=== PATIENT | male | born 1965 | race Caucasian/White ===

== ENCOUNTER 2018-11-10 06:01 | Day surgery (SDC) | payer OTHER ==
[~2018-11-10] VITALS: Ht 180.3 cm; Wt 98.0 kg
--- NOTE | 2018-11-10 08:02 | NUR ---
PT RETURNED TO RECOVERY ROOM IN RECLINER WITH RIGHT TR BAND AND RIGHT WRIST BOARD IN PLACE WITH NO HEMATOMA, NO PULSATILE BLEEDING AND INTACT. CALL LIGHT IN REACH.
--- NOTE | 2018-11-10 08:06 | NUR ---
DR POTTS IN ROOM TO SEE PT.
--- NOTE | 2018-11-10 10:10 | NUR ---
10 CC OF AIR REMOVED OVER 10 MIN FROM NOW DEFLATED RIGHT TR BAND. NO HEMATOMA, NO PULSATILE BLEEDING SOFT NON-TENDER. DISCHARGE INSTRUCTIONS REVIEWED AND ALL QUESTIONS ANSWERED.
--- NOTE | 2018-11-10 10:21 | NUR ---
NO CHANGES TO DEFLATED RIGHT TR BAND SITE.
--- NOTE | 2018-11-10 10:55 | NUR ---
DELFATED RIGHT TR BAND REMOVED AND POLYMEM PLACED OVER SITE. NO HEMATOMA, NO BLEEDING TO RIGHT RADIAL SITE. RIGHT RADIAL WRIST BOARD PLACED AND SLING ON RIGHT ARM. 20 G IV DISCONTINUED FROM LEFT AC WITH INTACT CANNULA. PT ESCORTED OUT VIA WHEELCHAIR ESCORT.
== END 2018-11-10 10:59 | disposition home or self-care (01) ==
LOC: MHTC 06:01
DX: I25.10 Atherosclerotic heart disease of native coronary artery without angina pectoris (principal); I10 Essential (primary) hypertension; F41.9 Anxiety disorder, unspecified; F32.9 Major depressive disorder, single episode, unspecified; F17.220 Nicotine dependence, chewing tobacco, uncomplicated; G47.33 Obstructive sleep apnea (adult) (pediatric); E66.9 Obesity, unspecified; I34.0 Nonrheumatic mitral (valve) insufficiency; E29.1 Testicular hypofunction; R00.1 Bradycardia, unspecified; R55 Syncope and collapse; Z99.89 Dependence on other enabling machines and devices
CPT/HCPCS: 93454; 99152; 99153; C1769; C1894; J1644; J2250; J3010; J7030; Q9967

== ENCOUNTER 2019-06-14 10:51 | Day surgery (SDC) | payer OTHER ==
[~2019-06-14] VITALS: Ht 182.9 cm; Wt 93.6 kg
--- NOTE | 2019-06-14 12:48 | NUR ---
06/14/19 1248 Cony Hernandez SIMETHICONE USED DURING PROCEDURE.
--- NOTE | 2019-06-14 14:51 | NUR ---
06/14/19 1451 Cony Hernandez PT TOLD RN HE WAS PLANNING ON DRIVING HOME. RN EDUCATED PATIENT ON RISKS INVOLVED, CONSEQUENCES, DRIVING UNDER THE INFLUENCE, MEDICATION MECHANISMS, ETC. AND INSTRUCTED TO NOT DRIVE FOR DR'S ORDERED 24 HRS. PT STATED HE WILL HAVE HIS RIDE "GO OUT TO LUNCH & THEN I CAN DRIVE MYSELF HOME." PT INSTRUCTED AGAIN NOT TO DRIVE FOR 24HRS DR ORDERED FOR SAFETY OF SELF & OTHERS. PT NOT RECEPTIVE.
== END 2019-06-14 14:13 | disposition home or self-care (01) ==
LOC: ORSCSDS 10:51
PROVIDERS: Internal Medicine Gastroenterology
PROC: 0DBK8ZX Excision of Ascending Colon, Via Natural or Artificial Opening Endoscopic, Diagnostic (ICD-10-PCS; principal; 2019-06-14 12:15)
PROC: 0DBN8ZX Excision of Sigmoid Colon, Via Natural or Artificial Opening Endoscopic, Diagnostic (ICD-10-PCS; principal; 2019-06-14 12:15)
PROC: 0DBL8ZX Excision of Transverse Colon, Via Natural or Artificial Opening Endoscopic, Diagnostic (ICD-10-PCS; principal; 2019-06-14 12:15)
DX: Z12.11 Encounter for screening for malignant neoplasm of colon (principal); D12.2 Benign neoplasm of ascending colon; D12.3 Benign neoplasm of transverse colon; K63.5 Polyp of colon; K57.30 Diverticulosis of large intestine without perforation or abscess without bleeding; K64.8 Other hemorrhoids; I10 Essential (primary) hypertension; G47.33 Obstructive sleep apnea (adult) (pediatric)
CPT/HCPCS: 88305; J2405; J2704; J7120

== ENCOUNTER 2019-06-21 10:53 | Day surgery (SDC) | payer OTHER ==
[~2019-06-21] VITALS: Ht 182.9 cm; Wt 92.2 kg
--- NOTE | 2019-06-21 11:19 | NUR ---
06/21/19 1119 Inna García PRP DRAWN, COAGULANT ADDED AND DELIVERED TO THE OR.
--- NOTE | 2019-06-21 14:44 | NUR ---
06/21/19 1444 JOSE FISCHER PATIENT UP TO CHAIR WITHOUT DIFFICULTY. VSS ON ROOM AIR. TOLERATING PO INTAKE WELL. DENIES PAIN/NAUSEA. NUMBNESS/TINGLING IN RUE D/T BLOCK. DISCHARGE INSTRUCTIONS REVIEWED WITH PATIENT. PATIENT VERBALIZES UNDERSTANDING. COPY GIVEN TO PATIENT TO TAKE HOME. PATIENT STATES POST-PROCEDURE RIDE HOME HAS BEEN ARRANGED WITH
== END 2019-06-21 14:36 | disposition home or self-care (01) ==
LOC: ORSCSDS 10:53
PROVIDERS: Orthopaedic Surgery
PROC: 01N50ZZ Release Median Nerve, Open Approach (ICD-10-PCS; principal; 2019-06-21 12:00)
PROC: 0LU14KZ Supplement Right Shoulder Tendon with Nonautologous Tissue Substitute, Percutaneous Endoscopic Approach (ICD-10-PCS; principal; 2019-06-21 12:00)
PROC: 0RNJ4ZZ Release Right Shoulder Joint, Percutaneous Endoscopic Approach (ICD-10-PCS; principal; 2019-06-21 12:00)
PROC: 0LQ14ZZ Repair Right Shoulder Tendon, Percutaneous Endoscopic Approach (ICD-10-PCS; principal; 2019-06-21 12:00)
DX: S46.001A Unspecified injury of muscle(s) and tendon(s) of the rotator cuff of right shoulder, initial encounter (principal); M75.21 Bicipital tendinitis, right shoulder; M75.41 Impingement syndrome of right shoulder; G56.01 Carpal tunnel syndrome, right upper limb; I10 Essential (primary) hypertension; E78.5 Hyperlipidemia, unspecified; I25.10 Atherosclerotic heart disease of native coronary artery without angina pectoris; G47.33 Obstructive sleep apnea (adult) (pediatric)
CPT/HCPCS: C1713; J0171; J0690; J1100; J1885; J2250; J2370; J2405; J2704; J2710; J3010; J7120

== ENCOUNTER 2021-11-28 17:30 | Emergency (ER) | payer OTHER ==
[~2021-11-28] VITALS: Ht 180.3 cm; Wt 94.3 kg
[2021-11-28] MEDS ORDERED: LOSARTAN-HCTZ1 EACH PO (18:06)
[2021-11-28] MEDS ORDERED: AMPDEX10 PO (18:09)
[2021-11-28 19:25] LABS: BASOPHILS ABSOLUTE AUTO 0.04 K/mm3 (0.00-0.23); BASOPHILS PERCENT AUTO 0 % (0-2); EOSINOPHILS PERCENT AUTO 1 % (0-6); Hematocrit 44.3 % (37.0-53.0); Hemoglobin 15.5 g/dL (13.5-17.5); IMMATURE GRAN ABSOLUTE AUTO 0.08 K/mm3 (0.00-0.10); IMMATURE GRAN PERCENT AUTO 1 % (0-1); LYMPHOCYTES ABSOLUTE AUTO 1.74 K/mm3 (0.84-5.20); LYMPHOCYTES PERCENT AUTO 15 % (21-46); MONOCYTES ABSOLUTE AUTO 1.18 K/mm3 (0.16-1.47); MONOCYTES PERCENT AUTO 10 % (4-13); Mean Corpuscular HGB 31.4 pg (26.0-34.0); Mean Corpuscular Volume 90 fL (80-100); Mean Platelet Volume 9.4 fL (9.1-12.4); NEUTROPHILS ABSOLUTE AUTO 8.53 K/mm3 (1.96-9.15); NEUTROPHILS PERCENT AUTO 73 % (41-73); Platelet Count 227 K/mm3 (150-400); RDW Coefficient Variation 12.8 % (11.7-14.2); RDW Standard Deviation 42.5 fL (35.1-46.3); Red Blood Cell Count 4.93 M/mm3 (4.30-5.90); White Blood Cell Count 11.67 K/mm3 (4.00-11.30)
[2021-11-28 19:33] LABS: Albumin/Globulin Ratio 1.1 (0.8-1.8); Bilirubin, Total 0.5 mg/dL (0.1-1.0); Bun/Creatinine Ratio 23.5 (12.0-20.0); Calcium, Blood 8.8 mg/dL (8.5-10.1); Creatinine, Blood 0.85 mg/dL (0.60-1.20); Globulin, Blood 3.5 g/dL (2.2-4.0); Magnesium, Blood 1.8 mg/dL (1.6-2.4); Potassium, Blood 3.1 mmol/L (3.5-5.5); Thyroid Stimulating Hormone 1.71 uIU/mL (0.360-4.800); Total Protein, Blood 7.5 g/dL (6.4-8.2)
== END 2021-11-28 21:26 | disposition home or self-care (01) ==
LOC: ER 17:30
PROVIDERS: Student in an Organized Health Care Education/Training Program
DX: R07.89 Other chest pain (principal); I10 Essential (primary) hypertension; R06.02 Shortness of breath; Z79.899 Other long term (current) drug therapy
CPT/HCPCS: 71046; 80053; 83735; 83880; 84443; 84484; 85025; 85379; 93005; 93010; 99284-25; A9270

== ENCOUNTER 2023-04-12 08:02 | Day surgery (SDC) | payer OTHER ==
[2023-04-12] VITALS (14 sets, daily range): BP systolic 108–151; BP diastolic 52–96
[~2023-04-12] VITALS: Ht 180.3 cm; Wt 98.6 kg
[~2023-04-12 08:02] MED LIST: AMPDEX10 PO; ASPI81CH PO; ESCI10 PO; LOSARTAN-HCTZ1 EACH PO; TURMERIC500 M2 PO; Voltaren100 GM TOP
[2023-04-12] MEDS ORDERED: CBD OINTMENT TOP (08:39)
[2023-04-12] MEDS ORDERED: [UNRECOGNIZED DRUG - OTHER] (08:39)
[2023-04-12] MEDS ORDERED: MARIJUANA INH (08:42)
--- NOTE | 2023-04-12 09:52 | NUR ---
PATIENT STATES HE WEARS HIS CONTACTS WHILE SLEEPING. DR CASTILLO STATES PATIENT MAY KEEP HIS CONTACT LENSES IN HIS EYES DURING SURGERY.
--- NOTE | 2023-04-12 19:19 | NUR ---
SHIFT SUMMARY POD0 L NGUYEN, AQUACEL IN PLACE C/D/I. POLAR PACK TO HIP. DENIES N/T. EATING, DRINKING, VOIDING. UP TO CHAIR AND WALKED IN TALAMANTES 1 ASSIST, GB, FWW. CALLS APPROPRIATELY. CALL LIGHT IN REACH.
[2023-04-13 02:58] VITALS: BP 153/71
[2023-04-13 05:04] LABS: BASOPHILS ABSOLUTE AUTO 0.03 K/mm3 (0.00-0.23); BASOPHILS PERCENT AUTO 0 % (0-2); EOSINOPHILS ABSOLUTE AUTO 0.14 K/mm3 (0.00-0.68); EOSINOPHILS PERCENT AUTO 1 % (0-6); Hematocrit 35.7 % (37.0-53.0); Hemoglobin 12.5 g/dL (13.5-17.5); IMMATURE GRAN ABSOLUTE AUTO 0.08 K/mm3 (0.00-0.10); IMMATURE GRAN PERCENT AUTO 1 % (0-1); LYMPHOCYTES ABSOLUTE AUTO 1.46 K/mm3 (0.84-5.20); LYMPHOCYTES PERCENT AUTO 15 % (21-46); MONOCYTES ABSOLUTE AUTO 1.15 K/mm3 (0.16-1.47); MONOCYTES PERCENT AUTO 12 % (4-13); Mean Corpuscular HGB 31.8 pg (26.0-34.0); Mean Corpuscular Volume 91 fL (80-100); Mean Platelet Volume 9.4 fL (9.1-12.4); NEUTROPHILS ABSOLUTE AUTO 7.13 K/mm3 (1.96-9.15); NEUTROPHILS PERCENT AUTO 71 % (41-73); Platelet Count 184 K/mm3 (150-400); RDW Standard Deviation 47.3 fL (35.1-46.3); Red Blood Cell Count 3.93 M/mm3 (4.30-5.90); White Blood Cell Count 9.99 K/mm3 (4.00-11.30)
[2023-04-13 05:39] LABS: Bun/Creatinine Ratio 20.4 (12.0-20.0); Calcium, Blood 8.4 mg/dL (8.5-10.1); Creatinine, Blood 0.74 mg/dL (0.60-1.20); Potassium, Blood 3.4 mmol/L (3.5-5.5)
--- NOTE | 2023-04-13 07:24 | NUR ---
SHIFT SUMMARY NOC. PT A/O X4. PT'S AQUACEL ON ANTERIOR LEFT HIP IS C/D/I. PT HAD A DIFFICULT TIME WITH PAIN CONTROL. RATED 10/10 PAIN MOST OF THE NIGHT UNTIL APPROXIMATLY 0100. PLEASE SEE EMAR FOR MEDICATIONS GIVEN. PT GIVEN EDUCATION ABOUT SAFETY WITH TRANSITIONS FROM STAND TO SIT. PT WOULD "PLOP" INTO CHAIR. PT RESTED WITH EYES CLOSED, CPAP ON AND CALL LIGHT IN REACH.
[2023-04-13 07:48] VITALS: BP 142/71
[2023-04-13] MEDS ORDERED: ASPI81CH PO (08:42)
[2023-04-13] MEDS ORDERED: Percocet 5-3251 EACH PO (08:43)
--- NOTE | 2023-04-13 09:41 | NUR ---
DISCHARGE NOTE: PATIENT WAS EDUCATED ON DISCHARGE INSTRUCTIONS. HE VERBALIZED UNDERSTANDING OF INSTRUCTIONS AND HAD NO FURTHER QUESTIONS AT THIS TIME. HARD PERSCRIPTIONS WERE PLACED IN DISCHARGE INSTRUCTIONS FOLDER. PAIN IS MANAGED WITH PO PAIN MEDS. HIS LEFT HIP HAS AN AQUACEL THAT IS C/D/I. DENIES NUMBNESS OR TINGLING IN ALL EXTREMITIES. PATIENT IS A SBA WITH FWW AND GAIT BELT. HE IS DRESSED AND HAS PERSONAL ITEMS IN THE ROOM GATHERED. PATIENT IS TOLERATING PO INTAKE AND IS VOIDING. PATIENT IS IN THE RECLINER CHAIR WITH LEGS ELEVATED AND CALL LIGHT IN REACH. HE IS WAITING FOR HIS RIDE TO COME PICK HIM UP TO TAKE HIM HOME.
--- NOTE | 2023-04-13 11:23 | NUR ---
PATIENT IS BEING WHEELCHAIRED OUT TO HIS RIDE TO BE TAKEN HOME. HE HAS ALL OF HIS PERSONAL BELONGINGS IN THE ROOM GATHERED. IV WAS TAKEN OUT AND WNL.
== END 2023-04-13 11:24 | disposition home or self-care (01) ==
LOC: ORSCMMR 08:02 → ORD 09:15 → SURS 12:39 → ORSCMMR 04-13 11:24
PROVIDERS: Orthopaedic Surgery
PROC: 0SRB0JZ Replacement of Left Hip Joint with Synthetic Substitute, Open Approach (ICD-10-PCS; principal; 2023-04-12 09:15)
DX: M16.12 Unilateral primary osteoarthritis, left hip (principal); I10 Essential (primary) hypertension; F41.8 Other specified anxiety disorders; Z79.899 Other long term (current) drug therapy
CPT/HCPCS: 27130; 0055T; 36415; 72170; 80048; 85025; 97116; 97162; 97530; A9270; C1776; J0171; J0690; J0735; J1100; J1170; J1885; J2250; J2371; J2405; J2704; J2795; J3010; J7120

== ENCOUNTER → 2024-04-25 | Outpatient (CLI) | payer OTHER ==
[~2024-04-25] MED LIST changes: +CBD OINTMENT TOP; +MARIJUANA INH; +Percocet 5-3251 EACH PO; +[UNRECOGNIZED DRUG - OTHER]
[2024-04-25 16:37] LABS: BASOPHILS ABSOLUTE AUTO 0.03 K/mm3 (0.00-0.23); BASOPHILS PERCENT AUTO 0 % (0-2); EOSINOPHILS ABSOLUTE AUTO 0.19 K/mm3 (0.00-0.68); EOSINOPHILS PERCENT AUTO 3 % (0-6); Hematocrit 45.2 % (37.0-53.0); Hemoglobin 15.7 g/dL (13.5-17.5); IMMATURE GRAN ABSOLUTE AUTO 0.05 K/mm3 (0.00-0.10); IMMATURE GRAN PERCENT AUTO 1 % (0-1); LYMPHOCYTES ABSOLUTE AUTO 2.27 K/mm3 (0.84-5.20); LYMPHOCYTES PERCENT AUTO 30 % (21-46); MONOCYTES ABSOLUTE AUTO 0.74 K/mm3 (0.16-1.47); MONOCYTES PERCENT AUTO 10 % (4-13); Mean Corpuscular HGB 31.3 pg (26.0-34.0); Mean Corpuscular HGB Conc 34.7 g/dL (31.5-36.5); Mean Corpuscular Volume 90 fL (80-100); Mean Platelet Volume 9.2 fL (9.1-12.4); NEUTROPHILS ABSOLUTE AUTO 4.18 K/mm3 (1.96-9.15); NEUTROPHILS PERCENT AUTO 56 % (41-73); Platelet Count 205 K/mm3 (150-400); RDW Coefficient Variation 13.8 % (11.7-14.2); RDW Standard Deviation 45.6 fL (35.1-46.3); Red Blood Cell Count 5.01 M/mm3 (4.30-5.90); White Blood Cell Count 7.46 K/mm3 (4.00-11.30)
[2024-04-25 16:58] LABS: Albumin, Blood 4.3 g/dL (3.4-5.0); Albumin/Globulin Ratio 1.2 (0.8-1.8); Bilirubin, Total 0.3 mg/dL (0.1-1.0); Creatinine, Blood 1.05 mg/dL (0.60-1.20); Globulin, Blood 3.7 g/dL (2.2-4.0); Magnesium, Blood 2.2 mg/dL (1.6-2.4); Potassium, Blood 3.5 mmol/L (3.5-5.5); Thyroid Stimulating Hormone 1.729 uIU/mL (0.360-4.800)
== END ==
LOC: LAB SHORT 16:33
PROVIDERS: Chiropractor
DX: R07.89 Other chest pain (principal); R53.83 Other fatigue
CPT/HCPCS: 80053; 83735; 84443; 84484; 85025; 85379

== ENCOUNTER → 2025-04-05 | Outpatient (CLI) | payer OTHER | END | disposition home or self-care (01) | LOC: LAB SHORT 18:17 → LAB 18:17 | DX: L72.3 Sebaceous cyst (principal); L08.9 Local infection of the skin and subcutaneous tissue, unspecified | CPT/HCPCS: 87070; 87075; 87076; 87205 ==